=== PATIENT | female | born 1980 | race African-American/Black ===

== ENCOUNTER 2018-11-12 11:13 | Emergency (ER) | payer OTHER ==
--- OUTSIDE RECORDS SUMMARY | 2018-11-12 11:14 | XMS REPORT ---
:1980 Author [facility] Address [address] [place] [address] Dr. Wilcox [address] [place] [address] Care Team Providers Name Role Phone Unavailable Unavailable Unavailable Problems This patient has no known problems. Allergies, Adverse Reactions, Alerts This patient has no known allergies or adverse reactions. Medications This patient has no known medications.
--- OUTSIDE RECORDS SUMMARY | 2018-11-12 11:15 | XMS REPORT | Summary of Care ---
:1980 Author Organization [facility] Address [address] [place] [address] Care Team Providers Name Role Phone Ritu Anthony MD Primary Care Provider Reason for Referral Radiology Services (Routine) Status Reason Specialty Diagnoses / Referred By Referred To Procedures Contact Contact Authorized Diagnostic Diagnoses Dysphagia, unspecified type [place], Radiology Procedures US HEAD NECK Ritu Sauer MD [address] [place] [address] [place] [phone] (Routine) Status Reason Specialty Diagnoses / Referred By Referred To Procedures Contact Contact Authorized Otolaryngology Diagnoses Submental lymphadenopathy Globus sensation Raj, [place] Procedures CONSULT/REFERRAL ENT MD Camacho [address] [place] [address] [place] [address] Reason for Visit Reason Comments LAB Abnormal Labs Encounter Details Date Type Department Care Team Description 10/02/2018 Office Visit [facility] Ritu Anthony Prediabetes ( Primary Dx); Medicine - Xochitl Sauer MD Low serum HDL; [address] [place] [address] [place] [address] Iron deficiency anemia due to chronic blood loss; [place], [place] Menorrhagia with regular cycle; [id number] Anxiety; [phone] Submental lymphadenopathy; Globus sensation; Dysphagia, unspecified type Allergies No Known Allergiesdocumented as of this encounter (statuses as of 10/05/2018) Medications Medication Sig Dispensed Refills Start Date End Date Status metoprolol tartrate Take 1 tablet by 3 tablet 0 09/25/2018 Active 25 mg tablet mouth one day prior to procedure and take 2 tablets by mouth on the morning of the procedure documented as of this encounter (statuses as of 10/05/2018) Active Problems Problem Noted Date Low serum HDL 10/02/2018 Prediabetes 10/02/2018 Anxiety 09/09/2018 History of abnormal cervical Pap smear 09/09/2018 History of gestational diabetes Sickle cell trait documented as of this encounter (statuses as of 10/05/2018) Immunizations Name Administration Dates Next Due Tdap 09/21/2014 documented as of this encounter Social History Tobacco Use Types Packs/Day Years Used Date Never Smoker Smokeless Tobacco: Never Used Alcohol Use Drinks/Week oz/Week Comments No 0 Standard drinks or equivalent 0.0 Sex Assigned at Date Recorded Not on file Job Start Date Occupation Industry Not on file Not on file Not on file Travel History Travel Start Travel End No recent travel history available. documented as of this encounter Last Filed Vital Signs Vital Sign Reading Time Taken Comments Blood Pressure 107/61 10/02/2018 1:24 PM CDT Pulse 99 10/02/2018 1:24 PM CDT Temperature 37 C (98.6 F) 10/02/2018 1:24 PM CDT Respiratory Rate - - Oxygen Saturation - - Inhaled Oxygen Concentration - - Weight 92.5 kg (204 lb) 10/02/2018 1:24 PM CDT Height 154.9 cm (5' 1") 10/02/2018 1:24 PM CDT Body Mass Index 38.55 10/02/2018 1:24 PM CDT documented in this encounter Patient Instructions Patient InstructionsRitu Anthony MD - 10/02/2018 1:15 PM CDT Dysphagia (Adult) Dysphagia istrouble swallowing.If you have dysphagia, you may have symptoms that include: Choking or coughing when you eat or drink Food getting stuck Drooling Vomiting after you eat or drink Aspirating (inhaling into the lungs) foods or liquids when you swallow The main causes of dysphagia are problems that affect the mouth, throat or tongue. Dysphagia may be caused by a problem with the esophagus (tube that carries food from the mouth to the stomach). These include blockage, swelling, or irritation from acid reflux or injury. Problems in the brain, such as a stroke or Parkinson's disease, can affect the muscles that coordinate swallowing. Dysphagia is treated by treating the cause. You may be given medicine to reduce stomach acid or control muscle spasms. If the problem doesn't go away, a procedure can be done to widen (dilate) the esophagus.If you have muscle or nerve problems, you may be advised to see a speech or occupational therapist. He or shemay give you exercises and instructions to help make eating safer. Home care To help ease the symptoms of dysphagia: Take any medicine youve been given exactly as directed. Ask for liquid medicines if you need them. To make eating easier: ? Eat slowly. ? Eat in a relaxed setting. ? Dont talk while you eat. ? Take small bites. Chew slowly and completely before you swallow. ? Sit upright during and after meals. ? Puree solid foods if needed. Thicken liquids with milk, juice, broth, gravy, or starch to make them easier to swallow. ? Ask your healthcare provider if a liquid diet may be better for you. Follow-up care Follow up with your healthcare provider or as directed. Your healthcare provider can give you information about tests you may need. When to seek medical advice Call your healthcare provider right away for any of the following: Inability to keep down food or liquid Symptoms that get worse quickly Coughing that won't stop Continuing to lose weight Fever of 100.4F (38C) or higher, or as directed by your healthcare provider Other symptoms as indicated by your healthcare provider Call 911 Call 911 for any of the following: Trouble breathing Inability to talk Loss of consciousness Date Last Reviewed: 08/30/201419999122-0297 [employer]. [address] [place] [address], [place] [address]. All rights reserved. This information is not intended as a substitute for professional medical care. Always follow your healthcare professional's instructions. documented in this encounter Progress Notes Ritu Anthony MD - 10/02/2018 1:15 PM CDT Cc: Chief Complaint Patient presents with LAB Abnormal Labs HPI Carlita Zhang is a 38 year old female who presents today for review of abnormal labs. When told about her anemia she admitted to h/o iron deficiency anemia and sickle cell trait. She endorses menorrhagia that isn't present with every menses. She says she hasn't been taking her iron supplement regularly but plans on doing so. She continues to c/o some anxiety but feels she can control her sxs on her own. She would like my opinion on her tx options. Additionally she is here to review her recent neck US results. She feels disappointed that her thyroid area wasn't included in the US b/c she has been experiencing some globus sensation and dysphagia. The US targeted a submental mass she noticed a few mos ago (see lab visit note). She denies sore throat, f/ c/s, early satiety, abdominal pain, heartburn, or unintentional weight loss. Allergies Carlita has No Known Allergies. Medications Outpatient Medications Prior to Visit Medication Sig Dispense Refill metoprolol tartrate 25 mg tablet Take 1 tablet by mouth one day prior to procedure and take 2 tablets by mouth on the morning of the procedure 3 tablet 0 No facility-administered medications prior to visit. Histories Past Medical History: Diagnosis Date Anxiety 09/09/2018 History of abnormal cervical Pap smear 09/09/2018 History of gestational diabetes Low serum HDL 10/02/2018 Sickle cell trait Past Surgical History: Procedure Laterality Date TUBAL LIGATION Social History Socioeconomic History Marital status: Spouse name: Not on file Number of children: Not on file Years of education: Not on file Highest education level: Not on file Occupational History Not on file Social Needs Financial resource strain: Not on file Food insecurity: Worry: Not on file Inability: Not on file Transportation needs: Medical: Not on file Non-medical: Not on file Tobacco Use Smoking status: Never Smoker Smokeless tobacco: Never Used Substance and Sexual Activity Alcohol use: No Alcohol/week: 0.0 oz Drug use: No Sexual activity: Not on file Lifestyle Physical activity: Days per week: Not on file Minutes per session: Not on file Stress: Not on file Relationships Social connections: Talks on phone: Not on file Gets together: Not on file Attends advent service: Not on file Active member of club or organization: Not on file Attends meetings of clubs or organizations: Not on file Relationship status: Not on file Intimate partner violence: Fear of current or ex partner: Not on file Emotionally abused: Not on file Physically abused: Not on file Forced sexual activity: Not on file Other Topics Concern Not on file Social History Narrative 09/09/18: . 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 Family History Problem Relation Age of Onset Non-contributory Unknown No Significant Medical Problems Mother No Significant Medical Problems Father Review of Systems Constitutional: Negative. HENT: Positive for trouble swallowing (dysphagia, globus sensation). Eyes: Negative. Respiratory: Negative. Cardiovascular: Negative. Gastrointestinal: Negative. Genitourinary: Positive for menstrual problem. Musculoskeletal: Negative. Skin: Negative. Neurological: Negative. Psychiatric/Behavioral: The patient is nervous/anxious. Endocrine: Endocrine negative Vital Signs BP 107/61 (BP Location: Right arm, Patient Position: Sitting, BP CUFF SIZE: Adult Large) | Pulse 99 | Temp 37 C (98.6 F) (Tympanic) | Ht 5' 1" (1.549 m) | Wt 204 lb (92.5 kg) | LMP 09/21/2018 (Approximate) | BMI 38.55 kg/m Physical Exam Nursing note and vitals reviewed. Discussion in lieu of physical examination. Labs Orders Only on 09/19/2018 Component Date Value CHOLESTEROL, TOTAL-Q 09/19/2018 141 HDL CHOLESTEROL-Q 09/19/2018 45* TRIGLYCERIDES-Q 09/19/2018 40 [id number] 09/19/2018 85 CHOL/HDLC RATIO-Q 09/19/2018 3.1 NON-HDL CHOLESTEROL-Q 09/19/2018 96 GLUCOSE-Q 09/19/2018 110* UREA NITROGEN (BUN)-Q 09/19/2018 13 CREATININE-Q 09/19/2018 0.56 eGFR NON-AFR. SLOVENIAN-Q 09/19/2018 118 eGFR -Q 09/19/2018 137 BUN/CREATININE RATIO-Q 09/19/2018 NOT APPLICABLE SODIUM-Q 09/19/2018 140 POTASSIUM-Q 09/19/2018 4.1 CHLORIDE-Q 09/19/2018 106 CARBON DIOXIDE-Q 09/19/2018 27 CALCIUM-Q 09/19/2018 9.2 PROTEIN, TOTAL-Q 09/19/2018 6.9 ALBUMIN-Q 09/19/2018 4.1 GLOBULIN-Q 09/19/2018 2.8 ALBUMIN/GLOBULIN RATIO-Q 09/19/2018 1.5 BILIRUBIN, TOTAL-Q 09/19/2018 0.5 ALKALINE PHOSPHATASE-Q 09/19/2018 48 AST-Q 09/19/2018 12 ALT-Q 09/19/2018 10 COLOR-Q 09/19/2018 YELLOW APPEARANCE-Q 09/19/2018 TURBID SPECIFIC GRAVITY-Q 09/19/2018 1.028 PH-Q 09/19/2018 < OR=5.0 GLUCOSE-Q 09/19/2018 NEGATIVE REDUCING SUBSTANCES-Q 09/19/2018 SEE NOTE BILIRUBIN-Q 09/19/2018 NEGATIVE KETONES-Q 09/19/2018 NEGATIVE OCCULT BLOOD-Q 09/19/2018 3+ PROTEIN-Q 09/19/2018 NEGATIVE NITRITE-Q 09/19/2018 NEGATIVE LEUKOCYTE ESTERASE-Q 09/19/2018 NEGATIVE WBC-Q 09/19/2018 NONE SEEN RBC-Q 09/19/2018 3-10 SQUAMOUS EPITHELIAL CELL* 09/19/2018 0-5 TRANSITIONAL EPITHELIAL$* 09/19/2018 SEE NOTE RENAL EPITHELIAL CELLS-Q 09/19/2018 SEE NOTE BACTERIA-Q 09/19/2018 NONE SEEN CALCIUM OXALATE CRYSTALS* 09/19/2018 SEE NOTE TRIPLE PHOSPHATE CRYSTAL* 09/19/2018 SEE NOTE URIC ACID CRYSTALS-Q 09/19/2018 SEE NOTE AMORPHOUS SEDIMENT-Q 09/19/2018 SEE NOTE CRYSTALS-Q 09/19/2018 SEE NOTE HYALINE CAST-Q 09/19/2018 NONE SEEN GRANULAR CAST-Q 09/19/2018 SEE NOTE CASTS-Q 09/19/2018 SEE NOTE YEAST-Q 09/19/2018 SEE NOTE COMMENTS-Q 09/19/2018 SEE NOTE -Q 09/19/2018 SEE NOTE WHITE BLOOD CELL COUNT-Q 09/19/2018 4.3 RED BLOOD CELL COUNT-Q 09/19/2018 4.89 HEMOGLOBIN-Q 09/19/2018 11.5* HEMATOCRIT-Q 09/19/2018 36.5 MCV-Q 09/19/2018 74.6* MCH-Q 09/19/2018 23.5* MCHC-Q 09/19/2018 31.5* RDW-Q 09/19/2018 16.9* PLATELET COUNT-Q 09/19/2018 320 MPV-Q 09/19/2018 9.9 ABSOLUTE NEUTROPHILS-Q 09/19/2018 2227 ABSOLUTE LYMPHOCYTES-Q 09/19/2018 1535 ABSOLUTE MONOCYTES-Q 09/19/2018 374 ABSOLUTE EOSINOPHILS-Q 09/19/2018 133 ABSOLUTE BASOPHILS-Q 09/19/2018 30 NEUTROPHILS-Q 09/19/2018 51.8 LYMPHOCYTES-Q 09/19/2018 35.7 MONOCYTES-Q 09/19/2018 8.7 EOSINOPHILS-Q 09/19/2018 3.1 BASOPHILS-Q 09/19/2018 0.7 TSH, 3RD GENERATION-Q 09/19/2018 0.63 VITAMIN D, 25-OH, TOTAL-Q 09/19/2018 30 HEMOGLOBIN A1c-Q 09/19/2018 6.1* CULTURE-Q 09/19/2018 SEE NOTE SOURCE:-Q 09/19/2018 URINE STATUS:-Q 09/19/2018 FINAL RESULT:-Q 09/19/2018 SEE NOTE COMMENT:-Q 09/19/[address]iography Coronaries Without Cardiac Calcium Scoring Result Date: 09/26/2018 1. Normal coronary arteries. 2. Normal cardiac chamber size. 3. Unremarkable aortic valve and aortic root. 4. Unremarkable pericardium. Us Head Neck Result Date: 09/26/2018 In submental region area of concern there are 2 adjacent lymph nodes measuring 0.6 and 0.6 cm with normal morphology. Assessment/Plan Diagnoses and all orders for this visit: Prediabetes Carb-controlled diet. Exercise regularly and work on weight loss. Consider self glucose monitoring. Consider metformin to help prevent progression to overt diabetes. Low serum HDL Low fat, low cholesterol/Mediterrean diet high in fish-particularly fish high in omega 3s such as salmon and tuna and tree nuts was recommended (as long as the patient is not allergic to these food items). Regular aerobic exercise was also encouraged. Iron deficiency anemia due to chronic blood loss, Menorrhagia with regular cycle , Sickle cell trait She plans on taking her iron supplement regularly and declines further work-up of her iron deficiency anemia in light of her known sickle cell trait and menorrhagia. Anxiety We discussed her tx options and she opted against pharmacotherapy to help her sxs. Submental lymphadenopathy, Globus sensation, Dysphagia, unspecified type Will get an US of the soft tissues of the anterior neck for further investigation of her globus sensation and dysphagia. Recommended evaluation and management by an ENT specialist. Referral intiated. If ENT can't find the etiology of her dysphagia she will be referred to GI. - CONSULT/REFERRAL ENT - US HEAD NECK; Future Obesity (BMI 30.0-39.9), Nutritional counseling, Exercise counseling Nutritional/Exercise Counseling and Education: - Counseled on diet, exercise, weight control and goals - Follow-Up plan: -Follow up visit with BMI in 3-6 Months Plan of care, desired health behaviors, goals, Ddx of dysphagia, and any prescribed medications werediscussed with the patient. This visit involved counseling and coordination of care that comprised more than 50% of the visit time. I spent 25 minute(s) total time with the patient. Education resources and self-management tools were provided and reviewed with the AVS. Patient/ guardian/family verbalized understanding and agrees to the plan of care. Barriers to care: None. Ability to manage care: Good. Advanced care planning (living will) information was not given/offered to the patient to review for discussion at a future visit. If applicable, the [place] [employer] database was accessed to review any controlled substance prescription claims data. If the patient is taking prescribed medications, the [employer] prescription claims data in [employer] was reviewed to assess patient compliance with the medication treatment plan. Follow-up: Return 3-6 months for prediabetes, cholesterol, and weight follow- up. Follow-up sooner if any problems or concerns. Scribe Attestation Holli Molina , am scribing for, and in the presence of, Ritu Anthony MD who performed the services described here-in. Holli Perdue, October 02, 2018, 1:34 PM Physician Attestation IRitu MD, personally performed the services described in this documentation , as scribed by, Holli Perdue in my presence and it is both accurate and complete. Ritu Anthony MD October 02, 2018, 1:34 PM documented in this encounter Plan of Treatment Date Type Specialty Care Team Description 10/06/2018 Office Visit Otolaryngology Vilma Savage PA-C [address] [place] [address] [phone] 10/06/2018 Appointment Radiology Ritu Anthony MD [address] [place] [address] [place] [phone] Name Type Priority Associated Diagnoses Order Schedule US HEAD NECK IMAGING Routine Dysphagia, unspecified type Expected: 2018, Expires: 10/03/2019 Health Maintenance Due Date Last Done Comments PNEUMOCOCCAL 0-64 YEARS COMBINED SERIES (1 of 3 - 1986 PCV13) INFLUENZA VACCINE 11/09/2018 PAP SMEAR 03/11/2019 03/11/2016 DTaP,Tdap,and Td Vaccines (2 - Td) 09/21/2024 09/21/2014 VARICELLA VACCINES Discontinued documented as of this encounter Results Not on filedocumented in this encounter Visit Diagnoses Diagnosis Prediabetes - Primary Other abnormal glucose Low serum HDL Iron deficiency anemia due to chronic blood loss Iron deficiency anemia secondary to blood loss (chronic) Menorrhagia with regular cycle Excessive or frequent menstruation Anxiety Anxiety state, unspecified Submental lymphadenopathy Enlargement of lymph nodes Globus sensation Gastrointestinal malfunction arising from mental factors Dysphagia, unspecified type documented in this encounter documented as of this encounter
--- OUTSIDE RECORDS SUMMARY | 2018-11-12 11:15 | XMS REPORT | Summary of Care ---
:1980 Author Organization [facility] Address [address] [place] [address] Support Name Relationship Address Phone Manas Zhang Unavailable [address] [facility] [place] [address] Care Team Providers Name Role Phone Ritu Anthony MD Primary Care Provider Reason for Referral Radiology Services (Routine) Status Reason Specialty Diagnoses / Referred By Referred To Procedures Contact Contact Closed Diagnostic Diagnoses Dysphagia, unspecified type [place], Radiology Procedures US HEAD NECK Ritu Sauer MD [address] [place] [address] Radiology Services (Routine) Status Reason Specialty Diagnoses / Referred By Referred To Procedures Contact Contact Closed Diagnostic Diagnoses Dysphagia, unspecified type [place], Radiology Procedures US HEAD NECK Ritu Sauer MD [address] [place] [address] Reason for Visit Auth/Cert Status Reason Specialty Diagnoses / Procedures Referred By Contact Referred To Contact Radiology [facility] [address] [place] [address] Encounter Details Date Type Department Care Team Description 10/06/2018 Hospital Encounter [facility] Ritu Anthony Arrived [place] [facility] [address] [facility] [address] [place] [address] [place] [address] [place], [place] [phone] [address] Allergies No Known Allergiesdocumented as of this encounter (statuses as of 10/07/2018) Medications Medication Sig Dispensed Refills Start Date End Date Status metoprolol tartrate Take 1 tablet by 3 tablet 0 09/25/2018 Active 25 mg tablet mouth one day prior to procedure and take 2 tablets by mouth on the morning of the procedure documented as of this encounter (statuses as of 10/07/2018) Active Problems Problem Noted Date Low serum HDL 10/02/2018 Prediabetes 10/02/2018 Anxiety 09/09/2018 History of abnormal cervical Pap smear 09/09/2018 History of gestational diabetes Sickle cell trait documented as of this encounter (statuses as of 10/07/2018) Immunizations Name Administration Dates Next Due Tdap [...] of this encounter Last Filed Vital Signs Not on filedocumented in this encounter Plan of Treatment Name Type Priority Associated Diagnoses Date/Time US HEAD NECK IMAGING Routine Dysphagia, unspecified type 10/06/2018 6:36 PM CDT Name Type Priority Associated Diagnoses Order Schedule US HEAD NECK IMAGING Routine Dysphagia, unspecified type 1 Occurrences starting 10/06/2018 until 10/06/2018 Health Maintenance Due Date Last Done Comments PNEUMOCOCCAL 0-64 YEARS COMBINED SERIES (1 of 3 - 1986 PCV13) INFLUENZA VACCINE 11/09/2018 PAP SMEAR 03/11/2019 03/11/2016 DTaP,Tdap,and Td Vaccines (2 - Td) 09/21/2024 09/21/2014 VARICELLA VACCINES Discontinued documented as of this encounter Results Not on filedocumented in this encounter Visit Diagnoses Diagnosis Dysphagia, unspecified type documented in this encounter (Work) [id number] documented as of this encounter
--- OUTSIDE RECORDS SUMMARY | 2018-11-12 11:15 | XMS REPORT | Summary of Care ---
:1980 Author Organization [facility] Address [address] [place] [address] Care Team Providers Name Role Phone RajDanieldonna Sauer MD Primary Care Provider Encounter Details Date Type Department Care Team Description 10/06/2018 Orders Only [facility] Doctor Unassigned, No [address] [facility] [place] [address] [address] [place] [address] Allergies No Known Allergiesdocumented as of this encounter (statuses as of 10/06/2018) Medications Medication Sig Dispensed Refills Start Date End Date Status metoprolol tartrate Take 1 tablet by 3 tablet 0 09/25/2018 Active 25 mg tablet mouth one day prior to procedure and take 2 tablets by mouth on the morning of the procedure documented as of this encounter (statuses as of 10/06/2018) Active Problems Problem Noted Date Low serum HDL 10/02/2018 Prediabetes 10/02/2018 Anxiety 09/09/2018 History of abnormal cervical Pap smear 09/09/2018 History of gestational diabetes Sickle cell trait documented as of this encounter (statuses as of 10/06/2018) Immunizations Name Administration Dates Next Due Tdap [...] filedocumented in this encounter Plan of Treatment Health Maintenance Due Date Last Done Comments PNEUMOCOCCAL 0-64 YEARS COMBINED SERIES (1 of 3 - 1986 PCV13) INFLUENZA VACCINE 11/09/2018 PAP SMEAR 03/11/2019 03/11/2016 DTaP,Tdap,and Td Vaccines (2 - Td) 09/21/2024 09/21/2014 VARICELLA VACCINES Discontinued documented as of this encounter Procedures Procedure Name Priority Date/Time Associated Diagnosis Comments NOTICE OF PRIVACY Routine 10/06/2018 6:06 PM PRACTICES CDT ASSIGNMENT OF BENEFITS Routine 10/06/2018 6:06 PM CDT documented in this encounter Results Not on filedocumented in this encounter Insurance Payer Benefit Plan / Group Subscriber ID Effective Dates Phone Address Type AETNA AETNA O [id number] 2014-Present HMO documented as of this encounter
--- OUTSIDE RECORDS SUMMARY | 2018-11-12 11:15 | XMS REPORT | Summary of Care ---
:1980 Author Organization [facility] Address [address] [place] [address] Care Team Providers Name Role Phone Ritu Anthony MD Primary Care Provider Reason for Referral (Routine) Status Reason Specialty Diagnoses / Referred By Referred To Procedures Contact Contact New Request Patient Endocrinology Diagnoses Multiple thyroid nodules Anene, Requested Diabetes & Procedures CONSULT/REFERRAL ENDOCRINOLOGY (thyroid) DANIEL Medina Specific Metabolism [address] [address] Reason for Visit Reason Comments TEST RESULTS Ultrasound Results Encounter Details Date Type Department Care Team Description 10/10/2018 Office Visit [facility] Family Carol Loo FNP Multiple thyroid Medicine - [place] [address] [facility] nodules (Primary Dx) [address] [address] [place], [place] [phone] [address] Allergies No Known Allergiesdocumented as of this encounter (statuses as of 10/10/2018) Medications Medication Sig Dispensed Refills Start Date End Date Status metoprolol Take 1 tablet by 3 tablet 0 09/25/2018 10/10/2018 Discontinued tartrate 25 mg mouth one day tablet prior to procedure and take 2 tablets by mouth on the morning of the procedure documented as of this encounter (statuses as of 10/10/2018) Active Problems Problem Noted Date Mild intermittent asthma without complication 10/10/2018 Multiple thyroid nodules 10/09/2018 Low serum HDL 10/02/2018 Prediabetes 10/02/2018 Anxiety 09/09/2018 History of abnormal cervical Pap smear 09/09/2018 History of gestational diabetes Sickle cell trait documented as of this encounter (statuses as of 10/10/2018) Immunizations Name Administration Dates Next Due Tdap [...] Sign Reading Time Taken Comments Blood Pressure 113/70 10/10/2018 2:50 PM CDT Pulse 92 10/10/2018 2:50 PM CDT Temperature - - Respiratory Rate - - Oxygen Saturation - - Inhaled Oxygen Concentration - - Weight 91.2 kg (201 lb) 10/10/2018 2:50 PM CDT Height 154.9 cm (5' 1") 10/10/2018 2:50 PM CDT Body Mass Index 37.98 10/10/2018 2:50 PM CDT documented in this encounter Progress Notes Carol Loo FNP - 10/10/2018 2:40 PM CDT Cc: Chief Complaint Patient presents with TEST RESULTS Ultrasound Results Carlita Zhang is a 38 year old female. Patient had a thyroid sonogram done, she has access to my chart and has reviewed her results. Today's visit is to go over the result with patient. She is being screened for multiple issues due to her persistent SOB, epigastric discomfort, and sensation of something being stuck in her throat causing some anxiety. She has seen a fishing line winding machine operator, and was diagnosed with asthma after multiple studies. The thyroid sonogram was prompted by all these symptoms she has been having. She has an endocriologist sheprefers to see and needs a referral to him (Dr. Hernandez) for continued care. She also has pending endoscopy with a GI specialist, because she has severe GERD, along with those above reported symptoms , the endoscopy is exploratory to r/o any other etiology to her symptoms. Allergies Carlita has No Known Allergies. Medications [...] of gestational diabetes Low serum HDL 10/02/2018 Multiple thyroid nodules 10/09/2018 Sickle cell trait Past Surgical History: Procedure [...] file Gets together: Not on file Attends restorationist service: Not on file Active member of [...] . 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 Family History Problem Relation Age of Onset Non-contributory Unknown No Significant Medical Problems Mother No Significant Medical Problems Father Review of Systems Constitutional: Negative. HENT: Negative. Eyes: Negative. Respiratory: Positive for shortness of breath (not acute, sees pulmonology). Cardiovascular: Negative. Gastrointestinal: Positive for abdominal pain (not acute, related to GERD). Neurological: Negative. Psychiatric/Behavioral: The patient is nervous/anxious (related to physical symptoms). Endocrine: Thyroid nodules Vital Signs BP 113/70 (BP Location: Right arm, Patient Position: Sitting, BP CUFF SIZE: Adult Large) | Pulse 92 | Ht 5' 1" (1.549 m) | Wt 201 lb (91.2 kg) | LMP (Approximate) | BMI 37.98 kg/m Physical Exam Constitutional: She is oriented to person, place, and time. She appears well- developed and well-nourished. No distress. HENT: Head: Normocephalic. Right Ear: External ear normal. Left Ear: External ear normal. Nose: Nose normal. Mouth/Throat: Oropharynx is clear and moist. Cardiovascular: Normal rate, regular rhythm, normal heart sounds and intact distal pulses. Pulmonary/Chest: Effort normal and breath sounds normal. No respiratory distress. She has no wheezes. She exhibits no tenderness. Abdominal: Soft. Bowel sounds are normal. Neurological: She is alert and oriented to person, place, and time. Skin: Skin is warm and dry. Psychiatric: She has a normal mood and affect. Nursing note and vitals reviewed. Assessment/Plan 1. Multiple thyroid nodules/follow up visit for imaging result - referral made to endocrinology for continued care. Continue all other recommended all scheduled care with specialist, and RTC as needed. This visit did not involve counseling and coordination that comprised more than 50% of the visit time.Electronically signed by Carol Loo FNP at 2018 5:08 PM CDTdocumented in this encounter Plan of Treatment Name Type Priority Associated Diagnoses Order Schedule THYROXINE, TOTAL LAB Routine Multiple thyroid nodules Ordered: 10/10/2018 Health Maintenance Due Date Last Done Comments PNEUMOCOCCAL 0-64 YEARS COMBINED SERIES (1 of 3 - 1986 PCV13) INFLUENZA VACCINE 11/09/2018 PAP SMEAR 03/11/2019 03/11/2016 DTaP,Tdap,and Td Vaccines (2 - Td) 09/21/2024 09/21/2014 VARICELLA VACCINES Discontinued documented as of this encounter Results Not on filedocumented in this encounter Visit Diagnoses Diagnosis Multiple thyroid nodules - Primary Nontoxic multinodular goiter documented in this encounter (Work) [id number] documented as of this encounter
--- OUTSIDE RECORDS SUMMARY | 2018-11-12 11:15 | XMS REPORT | Summary of Care ---
:1980 Author Organization [facility] Address [address] [place] [address] Care Team Providers Name Role Phone Ritu Anthony MD Primary Care Provider Reason for Referral Radiology Services (Routine) Status Reason Specialty Diagnoses / Referred By Referred To Procedures Contact Contact Authorized Diagnostic Diagnoses Dysphagia, unspecified type [place], Radiology Procedures US HEAD NECK Ritu Sauer MD [address] [place] [address] [place] [address] (Routine) Status Reason Specialty Diagnoses / Referred By Referred To Procedures Contact Contact Authorized Otolaryngology Diagnoses Submental lymphadenopathy Globus sensation Raj, Wondiful Procedures CONSULT/REFERRAL ENT MD Camacho [address] [place] [address] [place] [address] Reason for Visit Reason Comments LAB Abnormal Labs Encounter Details Date Type Department Care Team Description 10/02/2018 Office Visit [facility] Family Ritu Anthony Prediabetes ( Primary Dx); Medicine - Xochitl Sauer MD Low serum HDL; [address] [place] [address] [place] [address] Iron deficiency anemia due to chronic blood loss; [place], [place] Menorrhagia with regular cycle; [phone] Anxiety; [phone] Submental lymphadenopathy; Globus sensation; Dysphagia, unspecified type [...] talk Loss of consciousness Date Last Reviewed: 08/30/201419991401-7732 [employer]. [address] [place] [address], [place] [address]. All rights reserved. 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 Family History Problem Relation Age of Onset [...] HDL CHOLESTEROL-Q 09/19/2018 45* TRIGLYCERIDES-Q 09/19/2018 40 URF-OSAFITOBAOX-O 09/19/2018 85 CHOL/HDLC RATIO-Q 09/19/2018 3.1 NON-HDL CHOLESTEROL-Q 09/19/2018 96 GLUCOSE-Q 09/19/2018 110* UREA NITROGEN (BUN)-Q 09/19/2018 13 CREATININE-Q 09/19/2018 0.56 eGFR NON-AFR. MACANESE-Q 09/19/2018 118 eGFR -Q 09/19/2018 137 BUN/CREATININE [...] at a future visit. If applicable, the [place] [employer] database was accessed to review any controlled substance prescription claims data. If the patient is taking prescribed medications, the [employer] prescription claims data in [employer] was reviewed to assess patient compliance with [...] Visit Otolaryngology Vilma Savage PA-C [address] [place] [address] [phone] 10/06/2018 Appointment Radiology Ritu Anthony MD [address] [place] [address] [place] ACEVEDO [phone] Name Type Priority Associated [...]
--- OUTSIDE RECORDS SUMMARY | 2018-11-12 11:15 | XMS REPORT | Summary of Care ---
:1980 Author Organization [facility] Address [address] [place] [address] Care Team Providers Name Role Phone Ritu Anthony MD Primary Care Provider Reason for Referral (OLGA LIDIA) Status Reason Specialty Diagnoses / Referred By Referred To Procedures Contact Contact New Request Endocrinology Diagnoses Multiple thyroid nodules Raj Diabetes & Procedures CONSULT/REFERRAL ENDOCRINOLOGY Ritu Sauer MD Metabolism [address] [place] [address] [facility] [place] [address] Reason for Visit Reason Comments Referral/consult Encounter Details Date Type Department Care Team Description 10/09/2018 Telephone [place] Family Ritu Anthony, Referral/ consult Medicine - Xochitl ROMO [facility] [address] [place] [address] [place] [address] [place], [place] [phone] [address] Allergies No Known Allergiesdocumented as of this encounter (statuses as of 10/09/2018) Medications Medication Sig Dispensed Refills Start Date End Date Status metoprolol tartrate Take 1 tablet by 3 tablet 0 09/25/2018 Active 25 mg tablet mouth one day prior to procedure and take 2 tablets by mouth on the morning of the procedure documented as of this encounter (statuses as of 10/09/2018) Active Problems Problem Noted Date Multiple thyroid nodules 10/09/2018 Low serum HDL 10/02/2018 Prediabetes 10/02/2018 Anxiety 09/09/2018 History of abnormal cervical Pap smear 09/09/2018 History of gestational diabetes Sickle cell trait documented as of this encounter (statuses as of 10/09/2018) Immunizations Name Administration Dates Next Due Tdap [...] Nontoxic multinodular goiter documented in this encounter Insurance Payer Benefit Plan / Group Subscriber ID Effective Dates Phone Address Type DANIELLE DANIELLE O [id number] 2014-Present HMO documented as of this encounter
--- OUTSIDE RECORDS SUMMARY | 2018-11-12 11:15 | XMS REPORT | Summary of Care ---
:1980 Author Organization [facility] Address [address] [place] [address] Care Team Providers Name Role Phone Ritu Anthony MD Primary Care Provider Reason for Referral (Routine) Status Reason Specialty Diagnoses / Referred By Referred To Procedures Contact Contact New Request Patient Endocrinology Diagnoses Multiple thyroid nodules Anene, Requested Diabetes & Procedures CONSULT/REFERRAL ENDOCRINOLOGY (thyroid) DANIEL Medina Specific Metabolism [address] [address] Reason for Visit Reason Comments TEST RESULTS Ultrasound Results Encounter Details Date Type Department Care Team Description 10/10/2018 Office Visit [facility] Family Carol Loo FNP Multiple thyroid Medicine - [place] [address] [facility] nodules (Primary Dx) [address] [address] [place], [place] [phone] [address] Allergies No Known Allergiesdocumented as of [...] causing some anxiety. 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
--- OUTSIDE RECORDS SUMMARY | 2018-11-12 11:15 | XMS REPORT | Summary of Care ---
:1980 Author Organization [facility] [employer] [facility] Address [address] [place] [address] Care Team Providers Name Role Phone Ritu Anthony MD Primary Care Provider Reason for Referral (STAT) Status Reason Specialty Diagnoses / Referred By Referred To Procedures Contact Contact New Request Pulmonary Function Diagnoses SOB (shortness of breath) Raj Technologist Procedures DIAGNOSTIC PROCEDURE Preferred Location: Other (see comments) (soonest available ) Ritu Sauer MD [address] [place] [address] [place] [phone] (Routine) Status Reason Specialty Diagnoses / Procedures Referred By Referred To Contact Contact New Request Patient Diagnoses Dysphagia, unspecified type Raj, David, Requested Procedures CONSULT/REFERRAL GASTROENTEROLOGY Kd Bar MD [address] [place] [address] [place] [address] [address] [facility] [place] [phone] [place] [address] Phone: Fax: Encounter Details Date Type Department Care Team Description 10/16/2018 Patient Secure [facility] Family Ritu Anthony Dysphagia, unspecified type (Primary Dx); Ms Medicine - Xochitl Sauer MD SOB (shortness of breath) [address] [place] [address] [address] [phone] [phone] Allergies No Known Allergiesdocumented as of this encounter (statuses as of 10/16/2018) Medications No known medicationsdocumented as of this encounter (statuses as of 10/16/2018) Active Problems Problem Noted Date Mild intermittent asthma without complication 10/10/2018 Multiple thyroid nodules 10/09/2018 Low serum HDL 10/02/2018 Prediabetes 10/02/2018 Anxiety 09/09/2018 History of abnormal cervical Pap smear 09/09/2018 History of gestational diabetes Sickle cell trait documented as of this encounter (statuses as of 10/16/2018) Immunizations Name Administration Dates Next Due Tdap [...] Plan of Treatment Name Type Priority Associated Order Schedule Diagnoses DIAGNOSTIC PULMONARY FUNCTION STAT SOB (shortness of 1 Occurrences PROCEDURE Preferred LAB breath) starting 10/16/2018 Location: Other until 10/17/2019 (see comments) (soonest available) Health Maintenance Due Date Last Done Comments PNEUMOCOCCAL 0-64 YEARS COMBINED SERIES (1 of 3 - 1986 PCV13) INFLUENZA VACCINE 11/09/2018 PAP SMEAR 03/11/2019 03/11/2016 DTaP,Tdap,and Td Vaccines (2 - Td) 09/21/2024 09/21/2014 VARICELLA VACCINES Discontinued documented as of this encounter Results Not on filedocumented in this encounter Visit Diagnoses Diagnosis Dysphagia, unspecified type - Primary SOB (shortness of breath) Shortness of breath documented in this encounter Insurance Payer Benefit Plan / Group Subscriber ID Effective Dates Phone Address Type AETNA AETNA HMO [id number] 2014-Present HMO documented as of this encounter
--- OUTSIDE RECORDS SUMMARY | 2018-11-12 11:16 | XMS REPORT | Summary of Care ---
:1980 Author Organization [facility] - Health Address [address] [place] [address] Care Team Providers Name Role Phone Ritu Anthony MD Primary Care Provider Encounter Details Date Type Department Care Team Description 09/09/2018 Orders Only [facility] Doctor Unassigned, No [address] [facility] [place] [address] [address] [place] [address] Allergies No Known Allergiesdocumented as of this encounter (statuses as of 10/27/2018) Medications No known medicationsdocumented as of this encounter (statuses as of 10/27/2018) Active Problems Problem Noted Date Mild intermittent asthma without complication 10/10/2018 Multiple thyroid nodules 10/09/2018 Low serum HDL 10/02/2018 Prediabetes 10/02/2018 Anxiety 09/09/2018 History of abnormal cervical Pap smear 09/09/2018 History of gestational diabetes Sickle cell trait documented as of this encounter (statuses as of 10/27/2018) Immunizations Name Administration Dates Next Due Tdap [...] filedocumented in this encounter Plan of Treatment Date Type Specialty Care Team Description 10/28/2018 Transfer Operator Visit Pulmonary Function Beck Roque Technologist [address] [facility] [id number] [place] [address] Health Maintenance Due Date Last Done Comments INFLUENZA VACCINE (#1) 2018 PAP SMEAR 03/11/2019 03/11/2016 DTaP,Tdap,and Td Vaccines (2 - 09/21/2024 09/21/2014 Td) PNEUMOCOCCAL 0-64 YEARS COMBINED Aged Out No longer eligible based on SERIES patient's age to complete this topic VARICELLA VACCINES Discontinued documented as of this encounter Procedures Procedure Name Priority Date/Time Associated Diagnosis Comments PATIENT QUESTIONNAIRE Routine 09/09/2018 12:01 AM CDT documented in this encounter Results Not on filedocumented in this encounter Insurance Payer Benefit Plan / Group Subscriber ID Effective Dates Phone Address Type AETNA AETNA HMO [id number] 2014-Present HMO documented as of this encounter
--- OUTSIDE RECORDS SUMMARY | 2018-11-12 11:16 | XMS REPORT | Summary of Care ---
:1980 Author Organization [facility] Address [address] [place] [address] Care Team Providers Name Role Phone Ritu Anthony MD Primary Care Provider Reason for Visit Reason Comments Results PFTs Encounter Details Date Type Department Care Team Description 11/03/2018 Telephone [facility] Family Ritu Anthony MD Results (PFTs) Medicine [address] [address] [place] [address] Allergies No Known Allergiesdocumented as of this encounter (statuses as of 11/03/2018) Medications Medication Sig Dispensed Refills Start Date End Date Status albuterol 90 Inhale 2 Puffs 1 Inhaler 1 10/28/2018 Active mcg/actuation every 6 (six) hours inhalerIndications: as needed for SOB (shortness of Wheezing or breath) Shortness of Breath. documented as of this encounter (statuses as of 11/03/2018) Active Problems Problem Noted Date Mild intermittent asthma without complication 10/10/2018 Multiple thyroid nodules 10/09/2018 Low serum HDL 10/02/2018 Prediabetes 10/02/2018 Anxiety 09/09/2018 History of abnormal cervical Pap smear 09/09/2018 History of gestational diabetes Sickle cell trait documented as of this encounter (statuses as of 11/03/2018) Immunizations Name Administration Dates Next Due Tdap [...] Dates Phone Address Type AETNA AETNA O [id number] 2014-Present O documented as of this encounter
--- OUTSIDE RECORDS SUMMARY | 2018-11-12 11:16 | XMS REPORT | Summary of Care ---
:1980 Author Organization [facility] Address [address] [place] [address] Care Team Providers Name Role Phone Ritu Anthony MD Primary Care Provider Reason for Visit Reason Comments Results PFTs Encounter Details Date Type Department Care Team Description 11/03/2018 Telephone [facility] Family Ritu Anthony MD Results (PFTs) Medicine [address] [address] [place] [address] Allergies No Known Allergiesdocumented as of this encounter (statuses as of 11/06/2018) Medications Medication Sig Dispensed Refills Start Date End Date Status albuterol 90 Inhale 2 Puffs 1 Inhaler 1 10/28/2018 Active mcg/actuation every 6 (six) hours inhalerIndications: as needed for SOB (shortness of Wheezing or breath) Shortness of Breath. documented as of this encounter (statuses as of 11/06/2018) Active Problems Problem Noted Date Mild intermittent asthma without complication 10/10/2018 Multiple thyroid nodules 10/09/2018 Low serum HDL 10/02/2018 Prediabetes 10/02/2018 Anxiety 09/09/2018 History of abnormal cervical Pap smear 09/09/2018 History of gestational diabetes Sickle cell trait documented as of this encounter (statuses as of 11/06/2018) Immunizations Name Administration Dates Next Due Tdap [...] Dates Phone Address Type AETNA AETNA O [id number] 2014-Present O documented as of this encounter
--- OUTSIDE RECORDS SUMMARY | 2018-11-12 11:16 | XMS REPORT | Summary of Care ---
:1980 Author Organization [facility] Address [address] [place] [address] Care Team Providers Name Role Phone Ritu Anthony MD Primary Care Provider Reason for Visit Reason Comments DYSPNEA Status Reason Specialty Diagnoses / Referred By Referred To Procedures Contact Contact Closed Pulmonary Function Diagnoses SOB (shortness of breath) Estrella Anthony Shawn P, Technologist Procedures DIAGNOSTIC PROCEDURE Preferred Location: Other (see comments) (soonest available ) Ritu Sauer MD MD [address] [place] [address] [id number] [place] [phone] Phone: Fax: Encounter Details Date Type Department Care Team Description 10/28/2018 Adjunct Psychology Faculty Member Visit [facility] Beck Roque SOB (shortness of [place] [facility] breath) [address] LO[address] [place], [place] [address] Allergies No Known Allergiesdocumented as of this encounter (statuses as of 10/28/2018) Medications No known medicationsdocumented as of this encounter (statuses as of 10/28/2018) Active Problems Problem Noted Date Mild intermittent asthma without complication 10/10/2018 Multiple thyroid nodules 10/09/2018 Low serum HDL 10/02/2018 Prediabetes 10/02/2018 Anxiety 09/09/2018 History of abnormal cervical Pap smear 09/09/2018 History of gestational diabetes Sickle cell trait documented as of this encounter (statuses as of 10/28/2018) Immunizations Name Administration Dates Next Due Tdap [...] filedocumented in this encounter Visit Diagnoses Diagnosis SOB (shortness of breath) Shortness of breath documented in this encounter (Work) [id number] documented as of this encounter
--- OUTSIDE RECORDS SUMMARY | 2018-11-12 11:16 | XMS REPORT | Summary of Care ---
:1980 Author Organization [facility] - Health Address [address] [place] [address] Care Team Providers Name Role Phone Ritu Anthony MD Primary Care Provider Encounter Details Date Type Department Care Team Description 10/28/2018 Orders Only [facility] Doctor Unassigned, No 301 [facility] [place] [address] [address] [place] [address] Allergies No Known Allergiesdocumented as of this [...] Date Type Specialty Care Team Description 10/28/2018 Computer Network Engineer Visit Pulmonary Function Bekc Roque Technologist [address] [facility] [id number] [place] [address] Health Maintenance Due Date Last Done Comments INFLUENZA VACCINE (#1) 2018 PAP SMEAR 03/11/2019 03/11/2016 DTaP,Tdap,and Td Vaccines (2 - 09/21/2024 09/21/2014 Td) PNEUMOCOCCAL 0-64 YEARS COMBINED Aged Out No longer eligible based on SERIES patient's age to complete this topic VARICELLA VACCINES Discontinued documented as of this encounter Procedures Procedure Name Priority Date/Time Associated Diagnosis Comments CONSENT/REFUSAL FOR Routine 10/28/2018 12:15 PM DIAGNOSIS AND TREATMENT CDT ASSIGNMENT OF BENEFITS Routine 10/28/2018 12:15 PM CDT documented in this encounter Results Not on filedocumented in this encounter Insurance Payer Benefit Plan / Group Subscriber ID Effective Dates Phone Address Type AETNA AETNA O [id number] 2014-Present HMO documented as of this encounter
--- OUTSIDE RECORDS SUMMARY | 2018-11-12 11:16 | XMS REPORT | Summary of Care ---
:1980 Author Organization [facility] [employer] [facility] Address [address] [place] [id number] Care Team Providers Name Role Phone Ritu Anthony MD Primary Care Provider Reason for Referral (STAT) Status Reason Specialty Diagnoses / Referred By Referred To Procedures Contact Contact New Request Pulmonary Function Diagnoses SOB (shortness of breath) Raj Technologist Procedures DIAGNOSTIC PROCEDURE Preferred Location: Other (see comments) (soonest available ) Ritu Sauer MD [address] [place] [address] [place] [phone] (Routine) Status Reason Specialty Diagnoses / Procedures Referred By Referred To Contact Contact New Request Patient Diagnoses Dysphagia, unspecified type Raj, David, Requested Procedures CONSULT/REFERRAL GASTROENTEROLOGY Kd Bar MD [address] [place] [address] [place] [address] [address] [facility] [facility] [id number] [place] [address] Phone: Fax: Encounter Details Date Type Department Care Team Description 10/16/2018 Patient Secure [facility] Family Ritu Anthony Dysphagia, unspecified type (Primary Dx); [facility] Medicine - Xochitl Sauer MD SOB (shortness of breath) [address] [place] [address] [address] [place] [phone] Allergies No Known Allergiesdocumented as of this [...] Dates Phone Address Type AETNA AETNA HMO [id number] 2014-Present HMO documented as of this encounter
--- OUTSIDE RECORDS SUMMARY | 2018-11-12 11:16 | XMS REPORT | Summary of Care ---
:1980 Author Organization [facility] [employer] [facility] Address [address] [place] [address] Care Team Providers Name Role Phone Ritu Anthony MD Primary Care Provider Encounter Details Date Type Department Care Team Description 10/28/2018 Patient Secure [facility] Family Ritu Anthony SOB ( shortness of Msg Medicine - Xochitl Sauer MD breath) (Primary Dx) [address] [address] [address] [facility] [place] [phone] Allergies No Known Allergiesdocumented as of this encounter (statuses as of 10/28/2018) Medications Medication Sig Dispensed Refills Start Date [...] Visit Diagnoses Diagnosis SOB (shortness of breath) - Primary Shortness of breath documented in this encounter Insurance Payer Benefit Plan / Group Subscriber ID Effective Dates Phone Address Type AETNA AETNA O [id number] 2014-Present HMO documented as of this encounter
--- OUTSIDE RECORDS SUMMARY | 2018-11-12 11:16 | XMS REPORT | Summary of Care ---
:1980 Author Organization [facility] [employer] [facility] Address [address] [place] [id number] Care Team Providers Name Role Phone Ritu Anthony MD Primary Care Provider Reason for Referral (Routine) Status Reason Specialty Diagnoses / Referred By Referred To Procedures Contact Contact New Request Pulmonary Disease Diagnoses SOB (shortness of breath) Raj Procedures CONSULT/REFERRAL PULMONARY Ritu Sauer MD [address] [place] [address] [facility] [place] [place] [address] Encounter Details Date Type Department Care Team Description 10/16/2018 Patient Secure [facility] Family Ritu Anthony SOB ( shortness of Msg Medicine - Xochitl Sauer MD breath) (Primary Dx) [facility] [address] [place] [phone] Allergies No Known Allergiesdocumented as of this encounter (statuses as of 10/17/2018) Medications No known medicationsdocumented as of this encounter (statuses as of 10/17/2018) Active Problems Problem Noted Date Mild intermittent asthma without complication 10/10/2018 Multiple thyroid nodules 10/09/2018 Low serum HDL 10/02/2018 Prediabetes 10/02/2018 Anxiety 09/09/2018 History of abnormal cervical Pap smear 09/09/2018 History of gestational diabetes Sickle cell trait documented as of this encounter (statuses as of 10/17/2018) Immunizations Name Administration Dates Next Due Tdap [...] Dates Phone Address Type AETNA AETNA O [id number] 2014-Present HMO documented as of this encounter
[2018-11-12] MEDS ORDERED: LEVALBUTEROL 1.25 MG/3 ML NEB ONE (11:25)
[2018-11-12] MEDS ORDERED: NA CHLORIDE 0.9% 1,000 ML ONE ×2 (11:25→17:47)
[2018-11-12 11:52] LABS: Absolute Lymphocytes (CBC) 1.9 K/uL (0.7-4.9); Basophils % 0.5 % (0-1.3); Hematocrit 33.5 % (36.0-45.0); Lymphocytes % 30.5 % (15.3-44.8); MPV 7.8 fL (7.6-11.3); RBC Red Blood Cell Count 4.92 M/uL (3.86-4.86)
--- NOTE | 2018-11-12 12:00 | RAD REPORT ---
EXAM DESCRIPTION: RAD - Chest Single View - 11/12/2018 11:53 am CLINICAL HISTORY: SOB Chest pain. COMPARISON: Chest Pa And Lat (2 Views) dated 04/07/2018 FINDINGS: Portable technique limits examination quality. The lungs are grossly clear. The heart is normal in size. No displaced fractures. IMPRESSION: No acute intrathoracic process suspected.
[2018-11-12 12:05] LABS: Protime INR 1.15
[2018-11-12 12:15] LABS: ALT/SGPT 17 U/L (12-78); AST/SGOT 13 U/L (15-37); Albumin 3.9 g/dL (3.4-5.0); Alkaline Phosphatase 53 U/L (45-117); BUN Blood Urea Nitrogen 14 mg/dL (7-18); Bicarbonate 16 mmol/L (21-32); Bilirubin Direct 0.2 mg/dL (0-0.2); Bilirubin Total 0.6 mg/dL (0.2-1.0); Glucose Level 165 mg/dL (74-106); Magnesium 1.8 mg/dL (1.8-2.4); Protein, Total 7.9 g/dL (6.4-8.2); Sodium Level 140 mmol/L (136-145); Troponin (Emerg Dept Use Only) < 0.02 ng/mL (0.0-0.045)
[2018-11-12 12:18] LABS: NT PRO-BNP < 5 pg/mL (<125)
[2018-11-12 12:19] LABS: Potassium 2.6 mmol/L (3.5-5.1)
[2018-11-12] MEDS ORDERED: KCL 20 MEQ/100 mL IVPB 20 MEQ/100 ML BAG IV ONE (12:32)
[2018-11-12] MEDS ORDERED: POTASSIUM 25 MEQ EFFERV TAB ONE (12:32)
[2018-11-12] MEDS ORDERED: LORazepam 2 MG/ML VIAL ONE (13:27)
[2018-11-12 13:47] LABS: Anisocytosis 1+; Blood Morphology Comment NOTED (NOT SEEN); Burr Cells 1+; Platelet Estimate ADEQ; Urine White Blood Cell Casts OK
--- NOTE | 2018-11-12 14:15 | RAD REPORT ---
EXAM DESCRIPTION: CT - Chest For Pe Angio - 11/12/2018 1:58 pm CLINICAL HISTORY: SOBchest pain COMPARISON: Chest Single View dated 11/12/2018 TECHNIQUE: Dynamically enhanced 3 mm thick images of the chest were obtained during administration o f approximately 150mL Isovue 370 IV contrast. Coronal and oblique MIP reconstruction images were gene rated and reviewed. Exam utilizes a protocol to evaluate the pulmonary arterial tree. All CT scans are performed using dose optimization technique as appropriate and may include automated exposure control or mA/KV adjustment according to patient size. FINDINGS: No pulmonary emboli are identified. The aorta as imaged shows no acute or suspicious finding. No pericardial thickening or effusion. No infiltrate or mass in the lung parenchyma. No pleural effusion or pleural thickening. No mediastinal or hilar suspicious masses. No chest wall masses or abnormal axillary lymphadenopathy. IMPRESSION: No pulmonary emboli identified. No other significant or suspicious findings.
--- NOTE | 2018-11-12 17:24 | ER ---
Nurse's Notes [facility] Name: Carlita Zhang Age: 38 yrs Sex: Female : 1980 Arrival Date: 11/12/2018 Time: 11:18 Bed 7 Private MD: Diagnosis: Unspecified asthma with (acute) exacerbation;Hypokalemia Presentation: 11/12 11:30 Presenting complaint: EMS states: pt was at a work out facility when she became short sg of breath and experiencing symptoms similar to her anxiety attacks in the past, pt states that she is able to " talk my way out of the anxiety attacks, so that's just what im doing." pt denies pain just complaining of shortness of breath at rest now. Transition of care: patient was not received from another setting of care. Onset of symptoms was November 12, 2018. Risk Assessment: Do you want to hurt yourself or someone else? Patient reports no desire to harm self or others. Initial Sepsis Screen: Does the patient meet any 2 criteria? RR > 20 per min. HR > 90 bpm. Does the patient have a suspected source of infection? No. Patient's initial sepsis screen is negative. Care prior to arrival: Medication(s) given: Albuterol Neb x 3, Atrovent Neb x 1, solumedrol 125 mg IVP IV initiated. 20 GA, in the right antecubital area, Med neb given. 11:30 Method Of Arrival: EMS: [facility] sg 11:30 Acuity: RAVINDER 3 sg Historical: - Allergies: 11:34 No Known Allergies; sg - Home Meds: 11:34 Albuterol Inhl [Active]; sg - PMHx: 11:34 Asthma; sg 11:34 Anxiety; sg 11:34 Gestational Diabetes; sg - Immunization history:: Adult Immunizations not up to date. - Social history:: Smoking status: Patient/guardian denies using tobacco. - Ebola Screening: : Patient negative for fever greater than or equal to 101.5 degrees Fahrenheit, and additional compatible Ebola Virus Disease symptoms Patient denies exposure to infectious person Patient denies travel to an Ebola-affected area in the 21 days before illness onset No symptoms or risks identified at this time. Screenin:15 Abuse screen: Denies threats or abuse. Denies injuries from another. Nutritional sg screening: No deficits noted. Tuberculosis screening: No symptoms or risk factors identified. Never had TB. Fall Risk None identified. Assessment: 12:10 General: Appears in no apparent distress. well groomed, emaciated, well nourished, sg Behavior is calm, cooperative, appropriate for age. Pain: Denies pain. Neuro: Level of Consciousness is awake, alert, obeys commands, Oriented to person, place, time, situation, Marketing Data Specialist are equal bilaterally Moves all extremities. Full function Speech is normal, Facial symmetry appears normal. Cardiovascular: Capillary refill is brisk in bilateral fingers toes Patient's skin is warm and dry. Chest pain is denied. Respiratory: Reports shortness of breath at rest on exertion inability to take a deep breath Airway is patent Respiratory effort is even, unlabored, Respiratory pattern is regular, symmetrical, Breath sounds are clear bilaterally. 12:10 GI: Abdomen is round non-distended, Reports tolerance of fluids, tolerance of food. : sg No signs and/or symptoms were reported regarding the genitourinary system. EENT: No signs and/or symptoms were reported regarding the EENT system. Derm: Skin is pink, warm \\T\\ dry. Musculoskeletal: Circulation, motion, and sensation intact. Range of motion: intact in all extremities. 12:21 Reassessment: Patient appears in no apparent distress at this time. Patient and/or sg family updated on plan of care and expected duration. Pain level reassessed. Patient is alert, oriented x 3, equal unlabored respirations, skin warm/dry/pink. Patient states symptoms have not improved. 13:30 Reassessment: Patient appears in no apparent distress at this time. Patient and/or sg family updated on plan of care and expected duration. Pain level reassessed. pt reports having pain with deep inspiration, reports the sensation as burning. awaiting CT scan will continue to monitor. 14:30 Reassessment: Patient appears in no apparent distress at this time. Patient and/or sg family updated on plan of care and expected duration. Pain level reassessed. Patient is alert, oriented x 3, equal unlabored respirations, skin warm/dry/pink. 15:30 Reassessment: Patient appears in no apparent distress at this time. Patient and/or sg family updated on plan of care and expected duration. Pain level reassessed. Patient is alert, oriented x 3, equal unlabored respirations, skin warm/dry/pink. awaiting for IV potassium infusion to complete, orders to redraw the lab post infusion, will continue to monitor. 16:30 Reassessment: Patient appears in no apparent distress at this time. Patient and/or sg family updated on plan of care and expected duration. Pain level reassessed. pt requesting clarification on use of inhaler for asthma while exercising, pt education provided. pt requesting education on increasing potassium in the diet, pt education provided. 16:35 Reassessment: Patient appears in no apparent distress at this time. Patient and/or sg family updated on plan of care and expected duration. Pain level reassessed. Patient is alert, oriented x 3, equal unlabored respirations, skin warm/dry/pink. pt family remains at bedside at this time, IV potassium infusion continues to infuse at ordered rate, will continue to monitor. 17:10 Reassessment: Patient appears in no apparent distress at this time. Patient and/or sg family updated on plan of care and expected duration. Pain level reassessed. Patient is alert, oriented x 3, equal unlabored respirations, skin warm/dry/pink. awaiting for repeat potassium results at this time. 17:21 Reassessment: Patient appears in no apparent distress at this time. pt assisted to sg bedside toilet. 17:30 Reassessment: Patient appears in no apparent distress at this time. Patient and/or sg family updated on plan of care and expected duration. Pain level reassessed. Patient is alert, oriented x 3, equal unlabored respirations, skin warm/dry/pink. pt requesting anxiety medication, ERP notified, pt ordered to be dispo to home with prescriptions, pt stated understanding. 17:42 Reassessment: orders received for administration of IV NS 1 liter bolus prior to dc to sg home, pt reports " My kids will be out of day care at 6, and I need to get home to them." Baldemar BLOOD notified, pt instructed to increase PO fluids, pt stated understanding. Vital Signs: 11:32 BP 123 / 58; Pulse 100; Resp 17 S; Temp 97.6; Pulse Ox 100% on R/A; Weight 99.79 kg; sg Height 5 ft. 4 in. (162.56 cm); 11:35 Pulse Ox 100% on 2 lpm NC; sg 12:19 BP 122 / 72; Pulse 108; Resp 18; Pulse Ox 100% on 2 lpm NC; sg 13:00 BP 115 / 66; Pulse 123; Resp 18; Pulse Ox 100% ; sv 14:46 BP 110 / 72; Pulse 115; Resp 18; Pulse Ox 99% on 2 lpm NC; sg 17:22 BP 113 / 70; Pulse 118 MON; Resp 17; Pulse Ox 100% on 2 lpm NC; sg 17:50 BP 107 / 70; Pulse 102; Resp 17; Pulse Ox 100% on R/A; sg 11:32 Body Mass Index 37.76 (99.79 kg, 162.56 cm) sg 11:35 Baldemar BLOOD ordered for pt on supplemental o2 via NC at 2 lpm, titrate as needed sg ED Course: 11:18 Patient arrived in ED. em1 11:18 Adan Leonard MD is Attending Physician. rn 11:20 Fredo Ennis, SHARON is Primary Nurse. sg 11:21 Devin Huizar PA is PHCP. cp 11:32 Triage completed. sg 11:32 Arm band placed on. sg 11:52 Patient has correct armband on for positive identification. Bed in low position. Call sg light in reach. Side rails up X2. court recording monitor on. Pulse ox on. NIBP on. Warm blanket given. Pillow given. Head of bed elevated. 12:15 Maintain EMS IV. Dressing intact. Good blood return noted. Site clean \\T\\ dry. Gauge \\T\\ sg site: 20 gauge RAC. IV is patent, is intact, with good blood return, Flushed right antecubital saline lock with 5 ml normal saline. 12:30 Initial lab(s) drawn, by me, sent to lab. sg 12:41 Radiology exam delayed due to test not completed at this time. sj 13:50 Urine collected: clean catch specimen, santos blood, Amount Voided: 300mL. sg 13:53 No provider procedures requiring assistance completed. sg 14:18 CT Chest For PE Angio In Process Unspecified. EDMS 15:15 Assisted to bedside commode. sg 16:20 Assisted to bedside commode. sg 17:20 Assisted to bedside commode. sg 18:00 IV discontinued, intact, bleeding controlled, No redness/swelling at site. Pressure sg dressing applied. Administered Medications: 11:30 Drug: Xopenex (3) 1.25 mg Route: Inhalation; sg 12:02 Drug: NS 0.9% 1000 ml Route: IV; Rate: 1 bolus; Site: right antecubital; sg 14:20 Drug: Potassium Chloride 20 mEq Route: IV; Rate: calculated rate; Site: right sg antecubital; 16:20 Follow up: Response: No adverse reaction; IV Status: Completed infusion sg 15:50 Drug: Potassium Effervescent Tablet 50 mEq Route: PO; sg Outcome: 17:23 Discharge ordered by . cp 18:00 Discharged to home ambulatory, with family. sg 18:00 Condition: good 18:00 Discharge instructions given to patient, Instructed on discharge instructions, follow up and referral plans. medication usage, safety practices, Demonstrated understanding of instructions, follow-up care, medications, Prescriptions given X 2. 18:01 Patient left the ED. aa5 Signatures: Dispatcher [employer] EDMS Ramona Redmond RN RN sv Gay, Steven, RN RN sg Jones, Susan sj Nieto, Roman, MD MD rn Martinez, Eric [facility] Joceline Light RN RN aa5 Devin Huizar PA PA cp Corrections: (The following items were deleted from the chart) 15:59 14:10 Potassium Effervescent Tablet 50 mEq PO sg sg
--- NOTE | 2018-11-12 17:24 | EDPHYS ---
Physician Documentation [facility] Name: Carlita Zhang Age: 38 yrs Sex: Female : 1980 Arrival Date: 11/12/2018 Time: 11:18 Bed 7 Private MD: ED Physician Adan Leonard HPI: 11/12 11:30 This 38 yrs old Black Female presents to ER via EMS with complaints of Shortness Of cp Breath. 11:30 The patient has shortness of breath while exercising. cp 11:30 Onset: The symptoms/episode began/occurred today. Duration: The symptoms are cp continuous, and are steadily getting worse, no improvement after using albuterol inhaler. Associated signs and symptoms: Pertinent negatives: chest pain, productive cough, diaphoresis, fever, numbness in extremities, vomiting, syncope. Severity of symptoms: in the emergency department the symptoms are unchanged despite EMS interventions. Patient reports recently diagnosed with asthma and being prescribed albuterol inhaler. Historical: - Allergies: 11:34 No Known Allergies; sg - Home Meds: 11:34 Albuterol Inhl [Active]; sg - PMHx: 11:34 Asthma; sg 11:34 Anxiety; sg 11:34 Gestational Diabetes; sg - Immunization history:: Adult Immunizations not up to date. - Social history:: Smoking status: Patient/guardian denies using tobacco. - Ebola Screening: : Patient negative for fever greater than or equal to 101.5 degrees Fahrenheit, and additional compatible Ebola Virus Disease symptoms Patient denies exposure to infectious person Patient denies travel to an Ebola-affected area in the 21 days before illness onset No symptoms or risks identified at this time. ROS: 11:35 Constitutional: Negative for body aches, chills, fever, poor PO intake. cp 11:35 Eyes: Negative for injury, pain, redness, and discharge. cp 11:35 ENT: Negative for drainage from ear(s), ear pain, sore throat, difficulty swallowing, difficulty handling secretions. 11:35 Cardiovascular: Negative for chest pain, edema, palpitations. 11:35 Respiratory: Positive for shortness of breath, Negative for cough, hemoptysis. 11:35 Abdomen/GI: Negative for abdominal pain, nausea, vomiting, and diarrhea. 11:35 Back: Negative for radiated pain. 11:35 : Negative for urinary symptoms. 11:35 Neuro: Negative for altered mental status, headache, syncope, weakness. 11:35 All other systems are negative. Exam: 11:40 Constitutional: The patient appears in no acute distress, alert, awake, cp non-diaphoretic, non-toxic, well developed, well nourished. 11:40 Head/Face: Normocephalic, atraumatic. cp 11:40 Eyes: Periorbital structures: appear normal, Conjunctiva: normal, no exudate, no injection, Sclera: no appreciated abnormality, Lids and lashes: appear normal, bilaterally. 11:40 ENT: External ear(s): are unremarkable, Nose: is normal, Mouth: is normal, Posterior pharynx: is normal, airway is patent, no erythema, no exudate. 11:40 Chest/axilla: Inspection: normal, Palpation: is normal, no crepitus, no tenderness. 11:40 Cardiovascular: Rate: tachycardic, Rhythm: regular, Pulses: Pulses are 2+ in right radial artery and left radial artery. Heart sounds: murmur, not appreciated, Edema: is not appreciated, JVD: is not appreciated. 11:40 Respiratory: the patient does not display signs of respiratory distress, Respirations: labored breathing, that is mild, Breath sounds: bronchial sounds, that are mild, are heard diffusely, decreased breath sounds, are not appreciated, wheezing: is not appreciated. 11:40 Abdomen/GI: Inspection: abdomen appears normal, Bowel sounds: active, all quadrants, Palpation: abdomen is soft and non-tender, in all quadrants. 11:40 Back: pain, ROM is normal. 11:40 Neuro: Orientation: to person, place \T\ time. Mentation: is normal, Cerebellar function: is grossly normal, Motor: moves all fours, strength is normal, Sensation: is normal. 12:00 ECG was reviewed by the Attending Physician. cp Vital Signs: 11:32 BP 123 / 58; Pulse 100; Resp 17 S; Temp 97.6; Pulse Ox 100% on R/A; Weight 99.79 kg; sg Height 5 ft. 4 in. (162.56 cm); 11:35 Pulse Ox 100% on 2 lpm NC; sg 12:19 BP 122 / 72; Pulse 108; Resp 18; Pulse Ox 100% on 2 lpm NC; sg 13:00 BP 115 / 66; Pulse 123; Resp 18; Pulse Ox 100% ; sv 14:46 BP 110 / 72; Pulse 115; Resp 18; Pulse Ox 99% on 2 lpm NC; sg 17:22 BP 113 / 70; Pulse 118 MON; Resp 17; Pulse Ox 100% on 2 lpm NC; sg 17:50 BP 107 / 70; Pulse 102; Resp 17; Pulse Ox 100% on R/A; sg 11:32 Body Mass Index 37.76 (99.79 kg, 162.56 cm) sg 11:35 Baldemar BLOOD ordered for pt on supplemental o2 via NC at 2 lpm, titrate as needed sg MDM: 11:18 Patient medically screened. rn 11:30 Differential diagnosis: Anemia Anxiety Reaction asthma, pneumonia, Pneumothorax cp pulmonary edema, Pulmonary Embolism. 17:22 Data reviewed: vital signs, nurses notes, lab test result(s), EKG, radiologic studies, cp CT scan, plain films. 17:22 Test interpretation: by ED physician or midlevel provider: ECG. Counseling: I had a cp detailed discussion with the patient and/or guardian regarding: the historical points, exam findings, and any diagnostic results supporting the discharge/admit diagnosis, lab results, radiology results, the need for outpatient follow up, a family practitioner, to return to the emergency department if symptoms worsen or persist or if there are any questions or concerns that arise at home. Response to treatment: the patient's symptoms have mildly improved after treatment, and as a result, I will discharge patient. 11/12 11:22 Order name: Basic Metabolic Panel; Complete Time: 12:23 cp 11/12 12:23 Interpretation: Normal except: K 2.6; CL 109; CO2 16; GLUC 165; GFR 84. cp 11/12 11:22 Order name: CBC with Diff; Complete Time: 15:31 cp 11/12 12:11 Interpretation: Normal except: RBC 4.92; HGB 10.8; HCT 33.5; MCV 68.2; MCH 22.0; RDW cp 17.9. 11/12 11:22 Order name: LFT's; Complete Time: 12:23 cp 11/12 11:22 Order name: Magnesium; Complete Time: 12:23 cp 11/12 11:22 Order name: NT PRO-BNP; Complete Time: 12:23 cp 11/12 11:22 Order name: PT-INR; Complete Time: 12:20 cp 11/12 11:22 Order name: Troponin (emerg Dept Use Only); Complete Time: 12:23 cp 11/12 11:22 Order name: XRAY Chest (1 view) cp 11/12 11:22 Order name: D-Dimer; Complete Time: 12:20 cp 04 12:20 Interpretation: Normal except: D-DIMER 799. cp 11/12 12:24 Order name: CT Chest For PE Angio; Complete Time: 15:31 cp 11/12 12:37 Order name: Test, Serum; Complete Time: 15:31 em1 11/12 13:47 Order name: RAD; Complete Time: 15:31 EDMS 11/12 13:48 Order name: CBC Smear Scan; Complete Time: 15:31 EDMS 11/12 15:36 Order name: Potassium: redraw after administaration of po and oral potassium; Complete cp Time: 17:22 11/12 11:22 Order name: EKG; Complete Time: 11:24 cp 11/12 11:22 Order name: Cardiac monitoring; Complete Time: 12:27 cp 11/12 11:22 Order name: EKG - Nurse/Tech; Complete Time: 16:29 cp 11/12 11:22 Order name: IV Saline Lock; Complete Time: 11:29 cp 11/12 11:22 Order name: Labs collected and sent; Complete Time: 11:29 cp 11/12 11:22 Order name: O2 Per Protocol; Complete Time: 11:29 cp 11/12 11:22 Order name: O2 Sat Monitoring; Complete Time: 11:29 cp 11/12 11:22 Order name: Urine Test (obtain specimen); Complete Time: 11:29 cp 11/12 11:29 Order name: Urine Test (obtain specimen); Complete Time: 14:51 sg EC:00 Rate is 110 beats/min. Rhythm is regular. ND interval is normal. QRS interval is cp normal. QT interval is normal. Interpreted by me. Reviewed by me. Administered Medications: 11:30 Drug: Xopenex (3) 1.25 mg Route: Inhalation; sg 12:02 Drug: NS 0.9% 1000 ml Route: IV; Rate: 1 bolus; Site: right antecubital; sg 14:20 Drug: Potassium Chloride 20 mEq Route: IV; Rate: calculated rate; Site: right sg antecubital; 16:20 Follow up: Response: No adverse reaction; IV Status: Completed infusion sg 15:50 Drug: Potassium Effervescent Tablet 50 mEq Route: PO; sg Disposition: 18:30 Co-signature as Attending Physician, Adan Leonard MD. rn Disposition: 11/12/18 17:23 Discharged to Home. Impression: Unspecified asthma with (acute) exacerbation, Hypokalemia. - Condition is Stable. - Discharge Instructions: Asthma, Adult, How to Use an Inhaler, Hypokalemia. - Prescriptions for Xopenex HFA 45 mcg/actuation Inhalation HFA aerosol inhaler - inhale 2 puff by INHALATION route every 4-6 hours As needed; 1 Inhaler. Prednisone 20 mg Oral Tablet - take 2 tablet by ORAL route once daily for 5 days; 10 tablet. - Work release form, Medication Reconciliation Form, Thank You Letter, Antibiotic Education, Prescription Opioid Use form. - Follow up: Private Physician; When: 1 - 2 days; Reason: Recheck today's complaints. - Problem is new. - Symptoms have improved. Signatures: Dispatcher [employer] EDMS Fredo Ennis RN RN Adan Leonard MD MD rn Calderon, Audri, RN RN aa5 Devin Huizar PA PA cp Corrections: (The following items were deleted from the chart) 17:25 17:23 11/12/2018 17:23 Discharged to Home. Impression: Unspecified asthma with (acute) cp exacerbation. Condition is Stable. Forms are Medication Reconciliation Form, Thank You Letter, Antibiotic Education, Prescription Opioid Use. Follow up: Private Physician; When: 1 - 2 days; Reason: Recheck today's complaints. Problem is new. Symptoms have improved. cp 18:01 17:25 11/12/2018 17:23 Discharged to Home. Impression: Unspecified asthma with (acute) aa5 exacerbation; Hypokalemia. Condition is Stable. Discharge Instructions: Asthma, Adult, How to Use an Inhaler, Hypokalemia. Prescriptions for Xopenex HFA 45 mcg/actuation Inhalation HFA aerosol inhaler - inhale 2 puff by INHALATION route every 4-6 hours As needed; 1 Inhaler, Prednisone 20 mg Oral Tablet - take 2 tablet by ORAL route once daily for 5 days; 10 tablet. and Forms are Medication Reconciliation Form, Thank You Letter, Antibiotic Education, Prescription Opioid Use. Follow up: Private Physician; When: 1 - 2 days; Reason: Recheck today's complaints. Problem is new. Symptoms have improved. cp
[2018-11-12 18:41] VITALS: TEMP 97.6
[2018-11-12 18:47] VITALS: BP 113/70; O2SAT 100
--- NOTE | 2018-11-13 11:40 | EKG ---
Test Date: 2018-11-12 Test Time: 11:53:06 Vacuum Cleaner Assembler: DEJA MEASUREMENT RESULTS: Intervals: Rate: 110 SD: 130 QRSD: 84 QT: 464 QTc: 627 Boron: P: 72 SD: 130 QRS: 58 T: 46 INTERPRETIVE STATEMENTS: Sinus tachycardia ST & T wave abnormality, consider lateral ischemia Abnormal ECG Compared to ECG 02/06/2012 18:05:59 ST (T wave) deviation now present Possible ischemia now present Sinus rhythm no longer present Sinus arrhythmia no longer present Electronically Signed On 11-13-18 11:39:31 CDT by Yoel Palmer
== END 2018-11-12 18:01 | disposition home or self-care (01) ==
LOC: ER 11:13
DX: J45.901 Unspecified asthma with (acute) exacerbation (principal); E87.6 Hypokalemia
CPT/HCPCS: 96365; 93005; 85025; 80048; 36415; 83735; 84703; 84132; 85610; 85379; 80076; 84484; 83880; 71275; 71045; 99285; 96366; Q9967; J7030 ×2